=== PATIENT | male | born 1965 | race Caucasian/White ===

== ENCOUNTER 2018-02-25 06:55 | Day surgery (SDC) | payer OTHER ==
[~2018-02-25] VITALS: Ht 188 cm; Wt 101.6 kg
--- NOTE | ~2018-02-25 | OP ---
PATIENT NAME: JAMEEL EMANUEL MEDICAL RECORD: [id number] :69 LOCATION:[facility] ADMISSION DATE: SURGEON: QUEENIE AHUMADA MD DATE OF OPERATION: 02/25/2018 MILLWRIGHT SUPERVISOR'S NOTE I assisted Dr. NINOSKA Alarcon with bilateral laparoscopic inguinal hernia repairs with mesh. My involvement in the operation was minor. I inserted one of the trocars. I dissected down through the main incision to the fascia, which was then scored transversely. I was able to spread the rectus muscles and identify the preperitoneal space. I inserted the Spacemaker balloon and then inflated it. I then removed the balloon. I ran the camera some. I did not manipulate some tissues and do some of the dissection. I helped position the mesh. I then performed the fascial closure as well as closure of one of the trocar sites. TRANSINT:[id number] Voice Confirmation ID: [id number] DOCUMENT ID: [id number] QUEENIE AHUMADA MD at 1746 CC: [id number] DICTATION DATE: 02/25/18 1301 OIL EXPERT: 02/25/18 1431 [facility] 02/25/18 [facility] [address] [place] [address]
[2018-02-25 07:40] VITALS: BP 123/78; Ht 188 cm; Wt 101.6 kg
[2018-02-25] MEDS ORDERED: HYDROCODON-ACE1 EAC7 PO (12:49)
[2018-02-25] MEDS ORDERED: FLOMAX0.4 MG PO (12:49)
[2018-02-25] MEDS ORDERED: FUROSEMIDE20 MG PO (12:49)
== END 2018-02-25 16:00 | disposition home or self-care (01) ==
LOC: D.OPS 06:55 → D.PAN 09:15 → D.OPS 16:00
DX: K40.20 Bilateral inguinal hernia, without obstruction or gangrene, not specified as recurrent (principal); Z01.812 Encounter for preprocedural laboratory examination

== ENCOUNTER → 2019-01-28 13:41 | Outpatient (CLI) | payer OTHER ==
[2018-02-25 07:40] VITALS: BMI 28.8
[~2019-01-28 13:41] MED LIST: FLOMAX0.4 MG PO; FUROSEMIDE20 MG PO; HYDROCODON-ACE1 EAC7 PO
--- NOTE | 2019-02-03 10:06 | EC ---
PATIENT:JAMEEL EMANUEL DATE OF SERVICE: 01/28/19 SEX: M MEDICAL RECORD: [id number] DATE OF : 69 [facility] AGE OF PATIENT: 53 ADMISSION DATE: 01/28/19 REFERRING PHYSICIAN: INTERPRETING PHYSICIAN: JAIDEN CHURCHILL MD ECHOCARDIOGRAM REPORT ECHO CHARGES 4 ECHO COMPLETE Date: 01/28/19 CLINICAL DIAGNOSIS: CP/CORONA/MURMUR ECHOCARDIOGRAPHIC MEASUREMENTS (adult normal given) AC root (d.<3.7cm) 3.9 cm LV Septum d (<1.2 cm> 1.1 cm Valve Excursion 2.5 cm LV Septum (systole) 1.9 cm Left Atria (s.<4.0cm> 3.1 cm LVPW d(<1.2cm) 1.1 cm RV (d.<2.3cm) 3.8 cm LVPW (sytole) 1.4 cm LV diastole(<5.6CM) 7.6 cm MV E-F(>70mm/sec) cm LV systole 5.9 cm LVOT Diameter 2.2 cm MV exc.(>10mm) cm Est.ejection fraction (50-75%) % DOPPLER: LVIT cm/sec A 75.0 cm/sec E 100 cm/sec LA cm/sec RVSP 18.2 mmHg LVOT 111 cm/sec AOP1/2T m/s Asc. Ao 133 cm/sec RVOT 66.0 cm/sec RA cm/sec PA 88.0 cm/sec AV Gradient Peak 7.0 mmHg AV Mean 4.4 mmHg AV Area 2.7 cm MV Gradient Peak 5.0 mmHg MV Mean 1.5 mmHg MV Area cm COMMENTS: OP - HC Box Sealing Machine Operator: 1 DEMARCUS BONNIE Pipe Joints Supervisor: 3 Dr. Priest TAPE# PACS Pericardial Effusion N DATE OF SERVICE: Adequate 2D, color flow, spectral Doppler, and M-Mode. No LVH. LV internal dimensions are normal. Wall motion is normal. EF is greater than 55%. Aortic valve is tricuspid with no evidence of stenosis by Doppler interrogation. There is mild AI on color flow imaging. Left atrium is normal. Mitral valve shows no prolapse. Trace MR. Right-sided chambers grossly normal. Trace TR. ECHOCARDIOGRAM REPORT [id number] JAMEEL EMANUEL TRANSINT:[id number] Voice Confirmation ID: [id number] DOCUMENT ID: [id number] JAIDEN CHURCHILL MD at 1006 CC: [id number] DICTATION DATE: 01/29/191512 WASTEWATER PROJECT MANAGER: 01/30/19 0329 [facility] CLI 01/28/19 [place] [id number] [place] [id number]
--- NOTE | 2019-02-03 10:07 | ST ---
PATIENT:JAMEEL EMANUEL MEDICAL RECORD: [id number] SEX: M LOCATION:[facility] ORDER #: ADMISSION DATE: 01/28/19 AGE OF PATIENT: 53 REFERRING PHYSICIAN: INTERPRETING PHYSICIAN: JAIDEN CHURCHILL MD DATE OF SERVICE: 01/28/2019 Treadmill stress test Baseline ECG is normal. He exercised for 10 minutes on Torey protocol, maximum heart rate 168 beats per minute, greater than 95% of max predicted. No ECG changes of ischemia. No symptoms of ischemia. No blood pressure response to exercise. No arrhythmias noted. Good exercise tolerance for age. TRANSINT:[id number] Voice Confirmation ID: [id number] DOCUMENT ID: [id number] JAIDEN CHURCHILL MD at 1007 CC: [id number] DICTATION DATE: 01/30/19 1123 SCREW MACHINE TENDER: 01/30/19 1328 [facility] CLI 01/28/19 [place] [id number] [place] [address]
== END | disposition home or self-care (01) ==
LOC: D.HCCARDIO 13:41
PROVIDERS: ATTEND Internal Medicine Interventional Cardiology
DX: R07.9 Chest pain, unspecified (principal)

== ENCOUNTER → 2019-02-07 15:55 | Outpatient (CLI) | payer OTHER ==
[2018-02-25 07:40] VITALS: BMI 28.8
== END | disposition home or self-care (01) ==
LOC: D.LABREF 15:55
PROVIDERS: ATTEND Urology
DX: R31.9 Hematuria, unspecified (principal)

== ENCOUNTER → 2019-02-14 11:58 | Outpatient (CLI) | payer OTHER ==
[2018-02-25 07:40] VITALS: BMI 28.8
== END | disposition home or self-care (01) ==
LOC: D.CT 11:58
PROVIDERS: ATTEND Urology
DX: R31.21 Asymptomatic microscopic hematuria (principal)

== ENCOUNTER 2019-03-13 05:39 | Day surgery (SDC) | payer OTHER ==
[~2019-03-13] VITALS: Ht 188 cm; Wt 108.4 kg
[2019-03-13 06:57] VITALS: BP 101/74; Ht 188 cm; Wt 108.4 kg
--- NOTE | 2019-03-13 10:05 | NUR ---
REC'D FROM RR. ICE WATER BROUGHT TO PATIENT. FAMILY AT BEDSIDE. RELATING HE NEEDS TO USE THE BATHROOM. AMBULATED TO BATHROOM AND VOIDED WITHOUT DIFFICULTY.
--- NOTE | 2019-03-13 10:35 | NUR ---
FL TRAEliezer BROUGHT TO PATIENT. PT IN THE BATHROOM. PATIENT REPORTS URGENCY. DR LUCAS EXPLAINED TO PATIENT HE WOULD BE HAVING URGENCY FOR A FEW DAYS.
--- NOTE | 2019-03-13 11:05 | NUR ---
TOLERATED FL DIET. IN BATHROOM. VOIDING WITHOUT DIFFICULTY. FAMILY AT BEDSIDE.
--- NOTE | 2019-03-13 11:20 | NUR ---
WRITTEN AND VERBAL DC INST. GIVEN TO PATIENT ALONG WITH FOLLOW UP APPT. VERBALIZED UNDERSTANDING.
--- NOTE | 2019-03-13 11:30 | OP ---
PATIENT NAME: JAMEEL EMANUEL MEDICAL RECORD: [id number] :69 LOCATION:[facility] ADMISSION DATE: SURGEON: QUEENIE LUCAS MD DATE OF OPERATION: 03/13/2019 SURGEON: Queenie Lucas MD ANESTHESIA: TIVA by Sarah Reyes CRNA. DIAGNOSES: Microscopic hematuria, obstructive BPH. PSA is 0.82, DON shows a 40 gram prostate. IPSS equals 15 and quality of life score is 5. PROCEDURE: UroLift times 4 in a box configuration. FINDINGS: Bladder neck stenosis. Nonobstructive lateral lobes of the prostate. Heavily trabeculated bladder with cellules and diverticula. No bladder tumors were seen. There are single ureteral orifices bilaterally. BLOOD LOSS: Minimal. CLINICAL HISTORY: This is a 53-year-old male, who was investigated for microscopic hematuria. He also has significant symptoms of hesitancy and a slow urinary flow. He has nocturia times 2. There is a family history of prostate cancer in an uncle. However, his PSA is 0.82. On rectal examination, he has a 40 gram prostate with no palpable masses or nodules. He had a CT scan of the abdomen and pelvis, which showed some renal cysts, but no other abnormalities. Urine cytology was unremarkable. He comes today to have the UroLift procedure done and cystoscopy to check for the microscopic hematuria. He is not allergic to any medications. He was given Ancef manager control to the OR. DESCRIPTION OF PROCEDURE: The patient was given IV sedation. He was placed in the lithotomy position and prepped and draped. Lidocaine jelly was inserted into the urethra. The UroLift scope was introduced. We found that the obstruction was primarily at the bladder neck. Going in with the scope, we did not see any bladder tumors. He has a heavily trabeculated bladder. We then decided to place the 4 UroLift units in a box configuration near the bladder neck. This would be to open up the bladder neck stenosis. All 4 units were placed about 1.5 cm distal to the bladder neck. The first pair was placed one on each side, at the anterolateral sulcus of the lateral lobe. The second pair was placed in the mid urethral level. Once all [address], we had a nice wide open bladder neck. The bladder was left partly full with fluid in order to have a voiding trial. I will see him in followup in 1 months' time. TRANSINT:[id number] Voice Confirmation ID: [id number] DOCUMENT ID: [id number] QUEENIE LUCAS MD at 1130 CC: [id number] DICTATION DATE: 03/13/19 1004 GUEST HISTORY CLERK: 03/13/19 1120 [facility] [address] [place] [address]
--- NOTE | 2019-03-13 11:40 | NUR ---
DC'D HOME WITH FAMILY VIA PRIVATE VEHICLE. STABLE AT TIME OF DC.
== END 2019-03-13 11:40 | disposition home or self-care (01) ==
LOC: D.OPS 05:39 → D.PAN 07:30 → D.OPS 07:40
PROVIDERS: ATTEND Urology
DX: N32.0 Bladder-neck obstruction (principal); R31.29 Other microscopic hematuria; N32.89 Other specified disorders of bladder; N32.3 Diverticulum of bladder; Z01.812 Encounter for preprocedural laboratory examination